=== PATIENT | male | born 1945 | race Caucasian/White ===

== ENCOUNTER → 2017-12-23 | Outpatient (CLI) | payer MEDICARE ==
--- NOTE | 2017-12-27 09:56 | P.ARTDOP ---
Arterial Doppler LOWER EXTREMITY ARTERIAL DOPPLER: DATE OF SERVICE: 12/23/2017 Reason for study: Right leg pain. Doppler waveforms: Multiphasic throughout on the right. Pulse volume recording: Normal configuration on the right. Pressure gradients: None. Ankle-brachial indices: Shelly 1 bilaterally. Toe pressures: [] on the right, [] on the left Impression: Normal limited study.
== END | disposition home or self-care (01) ==
LOC: RADUSWWP 10:09
PROVIDERS: ATTEND Family Medicine
DX: I73.9 Peripheral vascular disease, unspecified (principal)
CPT/HCPCS: 93922

== ENCOUNTER → 2018-04-19 | Outpatient (CLI) | payer MEDICARE ==
--- NOTE | 2018-04-19 11:48 | US ---
EXAMINATION TYPE: US thyroid st tissue head/neck DATE OF EXAM: 04/19/2018 COMPARISON: US CLINICAL HISTORY: E04.1 Thyroid Nodule. GLAND SIZE: Right Lobe: 6.1 x 2.2 x 2.5 cm Overall Parenchyma: homogenous Left Lobe: 5.0 x 1.3 x 1.9 cm Overall Parenchyma: homogeneous Isthmus Thickness: 0.4 cm NODULES RIGHT: # of nodules measured on right: 0 LEFT: # of nodules measured on left: 1 1. 0.2 X 0.1 x 0.2 cm hypoechoic solid nodule at the upper pole with well-defined margins. This no dule is taller than wide and shows no intranodular vascularity. Prior size: 0.3 x 0.4 x 0.3 cm ISTHMUS: # of nodules measured in the isthmus: 0 Bilateral neck scanned, no evidence of lymphadenopathy. IMPRESSION: Subcentimeter nodule left lobe thyroid.
== END | disposition home or self-care (01) ==
LOC: RADUSWWP 10:57
PROVIDERS: ATTEND Family Medicine
DX: E04.1 Nontoxic single thyroid nodule (principal)
CPT/HCPCS: 76536

== ENCOUNTER → 2018-11-15 | Outpatient (CLI) | payer MEDICARE ==
--- NOTE | 2018-11-15 10:44 | US ---
EXAMINATION TYPE: US venous doppler duplex LE RT DATE OF EXAM: 11/15/2018 10:26 AM COMPARISON: NONE CLINICAL HISTORY: R79.1Abnormal coagulation profile. elevated d-dimer. On baby aspirin. No hx of blo od clots. SIDE PERFORMED: Right TECHNIQUE: The lower extremity deep venous system is examined utilizing real time linear array sonog kely with graded compression, doppler sonography and color-flow sonography. VESSELS IMAGED: External Iliac Vein (EIV) Common Femoral Vein Deep Femoral Vein Greater Saphenous Vein * Femoral Vein Popliteal Vein Small Saphenous Vein * Proximal Calf Veins (* superficial vessels) Right Leg: Negative for DVT Grayscale, color doppler, spectral doppler imaging performed of the deep veins of the right lower ext remity. There is normal flow, compressibility, vascular waveforms. IMPRESSION: No ultrasound evidence for acute DVT in the right lower extremity.
== END | disposition home or self-care (01) ==
LOC: RADUSWWP 09:58
PROVIDERS: ATTEND Family Medicine
DX: R79.1 Abnormal coagulation profile (principal)

== ENCOUNTER → 2019-04-11 | Outpatient (CLI) | payer MEDICARE ==
--- NOTE | 2019-04-11 15:17 | US ---
EXAMINATION TYPE: US thyroid st tissue head/neck DATE OF EXAM: 04/11/2019 COMPARISON: US 04/19/2018 CLINICAL HISTORY: E04.1 thyroid nodule. Follow up GLAND SIZE: Right Lobe: 5.4 x 2.2 x 2.2 cm Overall Parenchyma: heterogenous Left Lobe: 5.0 x 1.7 x 1.9 cm Overall Parenchyma: heterogeneous Isthmus Thickness: 0.4 cm NODULES RIGHT: # of nodules measured on right: 0 LEFT: # of nodules measured on left: 1 1. 0.5 X 0.4 x 0.5 cm hypoechoic mixed nodule at the upper pole with well-defined margins; . This nodule is wider than tall and shows no intranodular vascularity. Prior size: Not previously seen ISTHMUS: # of nodules measured in the isthmus: 0 Bilateral neck scanned, no evidence of lymphadenopathy. IMPRESSION: Subcentimeter left thyroid nodule. Surveillance exam could be considered in 12 months. Th is is too small for fine-needle aspiration.
== END | disposition home or self-care (01) ==
LOC: RADUSWWP 14:15
PROVIDERS: ATTEND Family Medicine
DX: E04.1 Nontoxic single thyroid nodule (principal)
CPT/HCPCS: 76536

== ENCOUNTER → 2020-03-18 | Outpatient (CLI) | payer MEDICARE ==
--- NOTE | 2020-03-18 15:58 | US ---
EXAMINATION TYPE: US thyroid st tissue head/neck DATE OF EXAM: 03/18/2020 COMPARISON: NONE CLINICAL HISTORY: E04.1 thyroid nodule. thyroid nodule GLAND SIZE: Right Lobe: 5.8 x 2.4 x 2.5 cm Overall Parenchyma: homogenous Left Lobe: 4.9 x 1.9 x 2.1 cm Overall Parenchyma: homogeneous Isthmus Thickness: 0.4 cm NODULES RIGHT: # of nodules measured on right: 0 LEFT: # of nodules measured on left: 0 ISTHMUS: # of nodules measured in the isthmus: 0 Bilateral neck scanned, no evidence of lymphadenopathy. IMPRESSION: Mild enlargement right thyroid lobe.
== END | disposition home or self-care (01) ==
LOC: RADUSWWP 15:25
PROVIDERS: ATTEND Family Medicine
DX: E04.9 Nontoxic goiter, unspecified (principal)
CPT/HCPCS: 76536

== ENCOUNTER → 2021-04-14 | Outpatient (CLI) | payer MEDICARE ==
--- NOTE | 2021-04-14 15:34 | US ---
EXAMINATION TYPE: US thyroid st tissue head/neck DATE OF EXAM: 04/14/2021 COMPARISON: US Thyroid 2019 CLINICAL HISTORY: E04.1 thyroid nodule. GLAND SIZE: Right Lobe: 5.4 x 1.6 x 2.0 cm Overall Parenchyma: homogenous Left Lobe: 4.3 x 1.2 x 1.8 cm Overall Parenchyma: homogeneous Isthmus Thickness: 0.41 cm NODULES RIGHT: # of nodules measured on right: 0 LEFT: # of nodules measured on left: 1 1. 0.8 X 0.7 x 0.7 cm, lower lateral, solid or almost completely solid, isoechoic nodule, which is wider than tall, with smooth margins, without echogenic foci. ISTHMUS: # of nodules measured in the isthmus: 0 Bilateral neck scanned, no evidence of lymphadenopathy. Nodule seen today in the lower pole of the left thyroid that was not previously seen. There was an up per pole nodule in the left thyroid that was previously seen in 2019 but not seen in 2020 or today du ring this exam. Homogeneous normal-sized thyroid with small posterior 8 mm fairly isoechoic thyroid nodule on current study not clearly seen on most recent prior. IMPRESSION: As above. No suspicious greater than 1.0 cm new nodules.
== END | disposition home or self-care (01) ==
LOC: RADUSWWP 14:43
PROVIDERS: ATTEND Family Medicine
DX: E04.1 Nontoxic single thyroid nodule (principal)
CPT/HCPCS: 76536

== ENCOUNTER → 2022-04-19 | Outpatient (CLI) | payer MEDICARE ==
--- NOTE | 2022-04-19 16:36 | US ---
EXAMINATION TYPE: US thyroid st tissue head/neck DATE OF EXAM: 04/19/2022 COMPARISON: 04/14/2021 CLINICAL HISTORY: E04.1 NONTOXIC SINGLE THYROID NODULE. GLAND SIZE: Right Lobe: 5.6 x 1.2 x 1.8 cm Overall Parenchyma: homogenous Left Lobe: 4.5 x 1.6 x 1.7 cm Overall Parenchyma: homogeneous Isthmus Thickness: 0.56 cm NODULES RIGHT: # of nodules measured on right: 0 LEFT: # of nodules measured on left: 1 1. 0.66 X 0.56 x 0.62 cm, lower, Prior size: 0.8 x 0.7 x 0.7 cm TIRADS Score: 3 TIRADS Category 3: Mildly Suspicious Composition: Solid or almost completely solid (2 points). Echogenicity: Hyperechoic or isoechoic (1 point). Shape: Wider than tall (0 points). Margin: Smooth (0 points). Echogenic foci: None or large comet-tail artifacts (0 points) Recommendation: If >2.5cm: FNA; If >1.5cm: Follow up at 1,3,5 years ISTHMUS: # of nodules measured in the isthmus: 0 Bilateral neck scanned, right lymph node prominent cortical thickness (0.33cm and is likely reactive. Patient states recent vaccines on arm but unknown side. IMPRESSION: Left thyroid nodule that is subcentimeter and does not meet criteria for followed by 2017 ACR TI-RADS criteria.
== END | disposition home or self-care (01) ==
LOC: RADUSWWP 15:25
PROVIDERS: ATTEND Otolaryngology
DX: E04.1 Nontoxic single thyroid nodule (principal)
CPT/HCPCS: 76536

== ENCOUNTER → 2023-05-13 | Outpatient (CLI) | payer MEDICARE ==
--- NOTE | 2023-05-14 14:04 | US ---
EXAMINATION TYPE: US thyroid st tissue head/neck DATE OF EXAM: 05/13/2023 COMPARISON: CLINICAL INDICATION: Male, 78 years old with history of E04.1 NONTOXIC SINGLE THYROID NODULE; Follow up thyroid nodule. Not on thyroid meds. GLAND SIZE: Right Lobe: 4.6 x 2.3 x 2.0 cm Overall Parenchyma: homogeneous Left Lobe: 3.7 x 2.0 x 1.4 cm Overall Parenchyma: homogeneous Isthmus Thickness: 0.6 cm NODULES RIGHT: # of nodules measured on right: 0 LEFT: # of nodules measured on left: 1 1. 0.7 X 0.7 x 0.7 cm, upper lateral, solid or almost completely solid, isoechoic nodule, which is wider than tall, with smooth margins, without echogenic foci. TR 3 Prior size: 0.7 x 0.6 x 0.6 cm ISTHMUS: # of nodules measured in the isthmus: 0 Bilateral neck scanned, no evidence of lymphadenopathy. IMPRESSION: Mildly suspicious subcentimeter nodule posterior left lobe thyroid 2017 ACR TI-RADS LEVEL: TR-RADS 3 - Mildly Suspicious: Follow if > 1.5 cm, FNA if > 2.5 cm *Highest TI-RADS level nodule reported
== END | disposition home or self-care (01) ==
LOC: RADUSWWP 15:36
PROVIDERS: ATTEND Family Medicine
DX: E04.1 Nontoxic single thyroid nodule (principal)
CPT/HCPCS: 76536

== ENCOUNTER → 2023-09-21 | Outpatient (CLI) | payer MEDICARE ==
--- NOTE | 2023-09-21 15:46 | US ---
EXAMINATION TYPE: US venous doppler duplex LE RT DATE OF EXAM: 09/21/2023 3:38 PM COMPARISON: NONE CLINICAL INDICATION: Male, 78 years old with history of R60.0 LOCALIZED EDEMA; pain and edema SIDE PERFORMED: Right TECHNIQUE: The lower extremity deep venous system is examined utilizing real time linear array sonog kely with graded compression, doppler sonography and color-flow sonography. VESSELS IMAGED: Common Femoral Vein Deep Femoral Vein Greater Saphenous Vein * Femoral Vein Popliteal Vein Small Saphenous Vein * Proximal Calf Veins (* superficial vessels) Right Leg: Negative for DVT IMPRESSION: Grayscale, color doppler, spectral doppler imaging performed of the deep veins of the lo wer extremities. There is normal flow, compressibility, vascular waveforms.
== END | disposition home or self-care (01) ==
LOC: RADUSWWP 15:01
PROVIDERS: ATTEND Family Medicine
DX: R60.0 Localized edema (principal)